=== PATIENT | female | born 1970 | race Caucasian/White ===

== ENCOUNTER 2019-11-05 17:23 | Emergency (ER) | payer OTHER ==
[~2019-11-05] VITALS: Ht 167.6 cm; Wt 99.8 kg
[2019-11-05 19:07] VITALS: BP 112/78
== END 2019-11-05 19:15 | disposition home or self-care (01) ==
LOC: ER 17:23
DX: S93.402A Sprain of unspecified ligament of left ankle, initial encounter (principal); M79.7 Fibromyalgia; Z88.1 Allergy status to other antibiotic agents; Z90.710 Acquired absence of both cervix and uterus; Z90.49 Acquired absence of other specified parts of digestive tract; W01.0XXA Fall on same level from slipping, tripping and stumbling without subsequent striking against object, initial encounter; Y93.89 Activity, other specified; Y92.69 Other specified industrial and construction area as the place of occurrence of the external cause; Y99.8 Other external cause status